=== PATIENT | female | born 1990 | race American Indian/Alaskan Native ===

== ENCOUNTER 2016-07-14 01:58 | Emergency (ER) | payer SELFPAY ==
[2016-07-14 02:14] VITALS: BP 139/91
[2016-07-14 03:30] LABS: Alanine Aminotransferase 9 units/L (7-56); Albumin 4.1 g/dL (3.9-5); Albumin/Globulin Ratio 1.2 %; Alkaline Phosphatase 48 units/L (35-129); Anion Gap 17 mmol/L; BUN/Creatinine Ratio 18.33; Bilirubin,Total < 0.2 mg/dL (0.1-1.2); Blood Urea Nitrogen 11 mg/dL (7-17); Carbon Dioxide 24 mmol/L (22-30); Chloride 99.6 mmol/L (98-107); Glucose 108 mg/dL (65-100); Lipase 26 units/L (13-60); Potassium 3.5 mmol/L (3.6-5.0); Sodium 137 mmol/L (137-145); Total Protein 7.4 g/dL (6.3-8.2)
[2016-07-14 03:33] LABS: Basophils % (Auto) 1.5 % (0.0-1.8); Eosinophils % (Auto) 5.3 % (0.0-4.3); Hematocrit 31.4 % (30.3-42.9); Hemoglobin 9.9 gm/dl (10.1-14.3); Mean Corpuscular HGB Conc 31 % (30-34); Mean Corpuscular Volume 78 fl (79-97); Platelet Count 255 K/mm3 (140-440); Red Blood Count 4.05 M/mm3 (3.65-5.03); Red Cell Distribution Width 18.1 % (13.2-15.2); White Blood Count 6.4 K/mm3 (4.5-11.0)
[2016-07-14 03:38] LABS: Mean Corpuscular Hemoglobin 24 pg (28-32)
[2016-07-14 06:14] LABS: Bilirubin,Urine NEG (Negative); Blood,Urine NEG (Negative); Ketones,Urine NEG (Negative); Leukocyte Esterase,Urine NEG (Negative); Mucus,Urine 3+ /HPF; Nitrite,Urine NEG (Negative); Protein,Urine <15 mg/dL mg/dL (Negative); Urobilinogen,Urine < 2.0 mg/dL (<2.0)
--- NOTE | 2016-07-16 19:25 | ED Elopement Review ---
ED Pt Elopement review - Results review Lab results: Laboratory Tests 07/14/16 07/14/16 07/14/16 02:51 02:51 Unknown WBC 6.4 RBC 4.05 Hgb 9.9 L Hct 31.4 MCV 78 L MCH 24 L MCHC 31 RDW 18.1 H Plt Count 255 Lymph % (Auto) 42.1 H [place] % (Auto) 7.6 H Eos % (Auto) 5.3 H Baso % (Auto) 1.5 Lymph # 2.7 [place] # 0.5 Eos # 0.3 Baso # 0.1 Seg Neutrophils % 43.5 Seg Neutrophils # 2.8 Sodium 137 Potassium 3.5 L Chloride 99.6 Carbon Dioxide 24 Anion Gap 17 BUN 11 Creatinine 0.6 L Estimated GFR > 60 BUN/Creatinine Ratio 18.33 Glucose 108 H Calcium 9.0 Total Bilirubin < 0.2 AST 18 ALT 9 Alkaline Phosphatase 48 Total Protein 7.4 Albumin 4.1 Albumin/Globulin Ratio 1.2 Lipase 26 Urine Color Yellow Urine Turbidity Cloudy Urine pH 6.0 Ur Specific [place] 1.025 Urine Protein <15 mg/dl Urine Glucose (UA) Neg Urine Ketones Neg Urine Blood Neg Urine Nitrite Neg Urine Bilirubin Neg Urine Urobilinogen < 2.0 Ur Leukocyte Esterase Neg Urine WBC (Auto) 6.0 Urine RBC (Auto) 2.0 U Epithel Cells (Auto) 33.0 H Urine Mucus 3+ - Call Back decision Pt Call Back Decision: No action required
== END 2016-07-14 02:52 | disposition left against medical advice (07) ==
LOC: ED 01:58
DX: M54.9 Dorsalgia, unspecified (principal); R10.9 Unspecified abdominal pain; Z53.21 Procedure and treatment not carried out due to patient leaving prior to being seen by health care provider
CPT/HCPCS: 36415; 80053; 81001; 83690; 85025